=== PATIENT | female | born 1935 | race Caucasian/White ===

== ENCOUNTER 2016-11-02 11:37 | Emergency (ER) | payer MEDICARE, BC ==
--- NOTE | 2016-11-02 12:11 | Emergency Department Record ---
History of Present Illness - General Chief complaint: Nosebleed/epistaxis Stated complaint: NOSE BLEED Time Seen by Provider: 11/02/16 12:11 Source: Patient Mode of Arrival: Ambulatory Limitations: No limitations - History of Present Illness Initial comments: The patient is here due to a nosebleed for the last 5 hours out of the R nares. She denies any bleeding from the L nares or down the back of the throat. The patient did also have a nosebleed 2 days ago and it was cauterized in her family doctor's office. The patient is on Xarelto due to intermittent Afib. Presently she denies being in Afib. MD complaint: Epistaxis Onset/Timin -: Hour(s) Location: Nose Severity: Mild Consistency: Constant Improves with: None Worsens with: None Context-Epistaxis: Other Associated Symptoms: Other - Related Data Home Medications Medication Instructions Recorded Confirmed Last Taken Atorvastatin Calcium 40 mg PO DAILY 04/02/16 09/25/16 11/01/16 Mesalamine [Asacol Hd] 1 tab PO BID 04/02/16 09/25/16 11/01/16 Tiotropium [place] [Spiriva] 1 puff INH DAILY 04/02/16 09/25/16 11/01/16 Acetaminophen [Tylenol Extra 500 mg PO Q8HR PRN 09/19/16 09/25/16 11/01/16 Strength] Amiodarone HCl [Pacerone] 200 mg PO DAILY 09/19/16 09/25/16 11/01/16 Ascorbic Acid [Vitamin C] 1,000 mg PO DAILY 09/19/16 09/25/16 11/01/16 Cholecalciferol (Vitamin D3) 2,000 unit PO DAILY 09/19/16 09/25/16 11/01/16 [Vitamin D3] Gluc/Yoav-MSM#1/C/Oliver/Mark/Bor 2 tab PO DAILY 09/19/16 09/25/16 11/01/16 [Osteo Bi-Flex] Levothyroxine Sodium [Synthroid] 75 mcg PO DAILY 09/19/16 09/25/16 11/01/16 Magnesium Oxide [Mag Ox] 400 mg PO DAILY 09/19/16 09/25/16 11/01/16 Multivitamin [Daily Multiple 1 each PO DAILY 09/19/16 09/25/1611/01/17 Vitamin] Tramadol HCl 50 mg PO Q6H PRN 09/19/16 09/25/16 11/01/16 Ubidecarenone [Coenzyme Q10] 100 mg PO DAILY 09/19/16 09/25/16 11/01/16 Losartan/Hydrochlorothiazide 1 tab PO DAILY 09/25/16 09/25/16 11/01/16 [Losartan-Hctz 100-12.5 mg Tab] Rivaroxaban [Xarelto] 20 mg PO DAILY 11/02/16 11/02/16 11/01/16 Previous Rx's Medication Instructions Recorded Hydrocodone/Acetaminophen [[place] 1 tab PO Q6H PRN #15 tab 09/19/16 5mg/325mg] Allergies Allergy/AdvReac Type Severity Reaction Status Date / Time lorazepam [From Ativan] AdvReac ALTERED Verified 09/19/16 01:42 MENTAL STATUS Travel Screening - Travel/Exposure Within Last 30 Days Have you traveled within the last 30 days?: No - Travel/Exposure Within Last Year Have you traveled outside the [place] in the last year?: No - Additonal Travel Details Have you been exposed to anyone with a communicable illness?: No - Travel Symptoms Symptom Screening: None Review of Systems Constitutional: Denies: Chills, Fever Eyes: Denies: Eye discharge ENT: Denies: Congestion Respiratory: Denies: Cough, Dyspnea Past Medical History - SOCIAL HISTORY Smoking Status: Never smoker Alcohol Use: None Drug Use: None - RESPIRATORY Hx Respiratory Disorders: Yes Hx COPD: Yes - CARDIOVASCULAR Hx Cardio Disorders: Yes Hx Hypertension: Yes Hx Irregular Heartbeat: Yes (Atrial fib) - NEURO Hx Neuro Disorders: No - GI Hx GI Disorders: Yes Comment:: Colitis - Hx Genitourinary Disorders: No - ENDOCRINE Hx Endocrine Disorders: No - MUSCULOSKELETAL Hx Musculoskeletal Disorders: Yes Hx Arthritis: Yes Comment:: left knee pain; has had cortisone injections in b ot knees-06-13 - PSYCH Hx Psych Problems: No - HEMATOLOGY/ONCOLOGY Hx Hematology/Oncology Disorders: No Family Medical History Any Significant Family History?: Yes Hx Heart Disease: Mother Hx HTN: Mother Physical Exam - General General Appearance: Alert, Oriented x3, Cooperative, No acute distress - Head Head exam: Atraumatic, Normocephalic, Normal inspection - Eye Eye exam: Normal appearance, PERRL Course Vital Signs 11/02/16 11:40 Temperature 98.1 F Pulse Rate 68 Respiratory 20 Rate Blood Pressure 178/94 Pulse Ox 99 - Reevaluation(s) Reevaluation #1: The patient is doing very well at this time. She has had no further bleeding since the cautery was done. On exam the R nares is clear with no active bleeding. 11/02/16 13:16 Reevaluation #2: Procedure note: The R nares was prepped with TLE and cauterized with silver nitrate over the medial R wall. There were no complications. 11/02/16 12:30 Reevaluation #3: The patient is doing very well at this time. She has had no further bleeding and is resting comfortably. I did discuss the case with Dr. Yu who is her PCP and he does agree that the patient will need to stop her Xarelto for 3 days. 11/02/16 14:40 Medical Decision Making - Data Complexity MDM Data: Labs Ordered and/or Reviewed - Lab Data Result diagrams: 11/02/16 12:35 11/02/16 12:35 Disposition Disposition: Discharge Clinical Impression: Epistaxis, recurrent Disposition: Home, Self-Care Condition: (1) Good Instructions: Epistaxis (ED) Additional Instructions: Please haegn not take your Xarelto for 3 days. Please use [place] Nasal spray in the R nares twice a day for 3 days along with some gently Abx ointment. Please see your PCP if not better in 3 days. Forms: Patient Portal Access Time of Disposition: 14:45
[2016-11-02 13:23] LABS: ANION GAP 8.1 (7-16); BLOOD UREA NITROGEN 20 mg/dL (7-17); CARBON DIOXIDE 25.9 mmol/L (22-30); CREATININE 0.8 mg/dL (0.52-1.04); EST GLOMERULAR FILTRATION RATE > 60 ml/min; GLUCOSE,RANDOM 90 mg/dL (70-110); INR 1.01; PARTIAL THROMBOPLASTIN TIME 30.9 SECONDS (24.5-39.1); PROTHROMBIN TIME (PATIENT) 11.4 SECONDS (9.5-12.1)
[2016-11-02 13:32] LABS: HEMATOCRIT 36.2 % (35.0-47.0); HEMOGLOBIN 12.2 gm/dl (11.6-16.0); MEAN CELL VOLUME 88.3 fl (81-97); MEAN CORPUSCULAR HEMOGLOBIN 29.8 pg (27-33); MEAN CORPUSCULAR HGB CONC 33.7 g/dl (32-36); MEAN PLATELET VOLUME 8.9 fl (7.4-10.4); PLATELET COUNT 430 K/uL (130-400); RED CELL DISTRIBUTION WIDTH 13.6 % (11.5-14.5); WHITE BLOOD COUNT W/O DIFF 7.8 K/uL (4.2-12.2)
[2016-11-02 13:54] LABS: PLATELET ESTIMATE NORMAL (NORMAL)
== END 2016-11-02 15:13 | disposition home or self-care (01) ==
LOC: ER 11:37
DX: R04.0 Epistaxis (principal); I48.91 Unspecified atrial fibrillation; Z79.01 Long term (current) use of anticoagulants
CPT/HCPCS: 30901; 80048; 85027; 85610; 85730; 99283; 99284

== ENCOUNTER 2017-01-22 14:26 | Emergency (ER) | payer MEDICARE, BC ==
--- NOTE | 2017-01-22 15:14 | Emergency Department Record ---
History of Present Illness - General Chief complaint: Flu Like Symptoms Stated complaint: KENNEDY, UPSET STOMACH, COUGH Time Seen by Provider: 01/22/17 15:06 Source: Patient, Family Mode of Arrival: Wheelchair Limitations: No limitations - History of Present Illness Initial comments: 81 yo female presents not feeling well since Simon night. She has developed cough, chills, subjective fever. The cough has been productive with a small amount of yellowish sputum. She is eating and drinking but at decreased amounts. No rash. She has some congestion and frontal headache and nausea at times. She did get a flu shot. She is a non smoker. No history of COPD or asthma Onset/Timin -: Days(s) Location: Generalized Severity: Moderate Consistency: Constant Improves with: None Worsens with: None Associated Symptoms: Fever/chills, Headaches, Nausea/vomiting - Tere Coma Scale Eye Response: (4) Open spontaneously Motor Response: (6) Obeys commands Verbal Response: (5) Oriented Tere Total: 15 - Related Data Home Medications Medication Instructions Recorded Confirmed Last Taken Atorvastatin Calcium 40 mg PO DAILY 04/02/16 01/22/17 01/21/17 Mesalamine [Asacol Hd] 1 tab PO BID 04/02/16 01/22/17 01/21/17 Tiotropium [place] [Spiriva] 1 puff INH DAILY 04/02/16 01/22/17 01/21/17 Acetaminophen [Tylenol Extra 500 mg PO Q8HR PRN 09/19/16 01/22/17 01/21/17 Strength] Amiodarone HCl [Pacerone] 200 mg PO DAILY 09/19/16 01/22/17 01/21/17 Ascorbic Acid [Vitamin C] 1,000 mg PO DAILY 09/19/16 01/22/17 01/21/17 Cholecalciferol (Vitamin D3) 2,000 unit PO DAILY 09/19/16 01/22/17 01/21/17 [Vitamin D3] Gluc/Yoav-MSM#1/C/[place]/Mark/Bor 2 tab PO DAILY 09/19/16 01/22/17 01/21/17 [Osteo Bi-Flex] Levothyroxine Sodium [Synthroid] 75 mcg PO DAILY 09/19/16 01/22/17 01/21/17 Magnesium Oxide [Mag Ox] 400 mg PO DAILY 09/19/16 01/22/17 01/21/17 Multivitamin [Daily Multiple 1 each PO DAILY 09/19/16 01/22/17 01/21/17 Vitamin] Tramadol HCl 50 mg PO ASDIR PRN 09/19/16 01/22/17 01/21/17 Ubidecarenone [Coenzyme Q10] 100 mg PO DAILY 09/19/16 01/22/17 01/21/17 Losartan/Hydrochlorothiazide 1 tab PO DAILY 09/25/16 01/22/17 01/21/17 [Losartan-Hctz 100-12.5 mg Tab] Rivaroxaban [Xarelto] 20 mg PO DAILY 11/02/16 01/22/17 01/21/17 Previous Rx's Medication Instructions Recorded Hydrocodone/Acetaminophen [[place] 1 tab PO Q6H PRN #15 tab 09/19/16 5mg/325mg] Oseltamivir Phosphate [Tamiflu] 75 mg PO BID #10 capsule 01/22/17 Allergies Allergy/AdvReac Type Severity Reaction Status Date / Time lorazepam [From Ativan] AdvReac ALTERED Verified 01/22/17 14:53 MENTAL STATUS Travel Screening - Travel/Exposure Within Last 30 Days Have you traveled within the last 30 days?: No Review of Systems Constitutional: Reports: Chills, Fever, Malaise, Weakness Eyes: Denies: Eye discharge, Eye pain, Photophobia, Vision change ENT: Reports: Congestion, Throat pain Respiratory: Reports: Cough Cardiovascular: Denies: Chest pain, Palpitations, Syncope Endocrine: Reports: Fatigue. Denies: Polydipsia, Polyuria Gastrointestinal: Reports: Diarrhea (few very small loose stools), Nausea. Denies: Abdominal pain, Vomiting Genitourinary: Denies: Dysuria, Urgency Musculoskeletal: Denies: Arthralgia, Back pain, Joint swelling, Myalgia Skin: Denies: Bruising, Change in color, Rash Neurological: Denies: Confusion, Headache Psychiatric: Denies: Anxiety Hematological/Lymphatic: Denies: Blood Clots, Easy bleeding, Easy bruising, Swollen glands Past Medical History - SOCIAL HISTORY Smoking Status: Never smoker Alcohol Use: None Drug Use: None - RESPIRATORY Hx Respiratory Disorders: Yes Hx COPD: Yes - CARDIOVASCULAR Hx Cardio Disorders: Yes Hx Hypertension: Yes Hx Irregular Heartbeat: Yes (Atrial fib) - NEURO Hx Neuro Disorders: No - GI Hx GI Disorders: Yes Comment:: Colitis - Hx Genitourinary Disorders: No - ENDOCRINE Hx Endocrine Disorders: No - MUSCULOSKELETAL Hx Musculoskeletal Disorders: Yes Hx Arthritis: Yes Comment:: left knee pain; has had cortisone injections in b oth knees-8-16 - PSYCH Hx Psych Problems: No - HEMATOLOGY/ONCOLOGY Hx Hematology/Oncology Disorders: No Family Medical History Any Significant Family History?: Yes Hx Heart Disease: Mother Hx HTN: Mother Physical Exam - General General Appearance: Alert, Oriented x3, Cooperative, No acute distress Limitations: No limitations - Head Head exam: Normal inspection - Eye Eye exam: Normal appearance, PERRL. negative: Conjunctival injection, Periorbital swelling - ENT ENT exam: Normal exam, Mucous membranes moist Ear exam: Normal external inspection Nasal Exam: Discharge, Sinus tenderness. negative: Normal inspection Mouth exam: Normal external inspection Teeth exam: Normal inspection Throat exam: Normal inspection - Neck Neck exam: Normal inspection, Full ROM. negative: Tenderness - Respiratory Respiratory exam: Decreased breath sounds, Rhonchi (left greater than right), Other (No conversation dyspnea). negative: Normal lung sounds bilaterally, Accessory muscle use, Prolonged expiratory, Respiratory distress, Wheezes - Cardiovascular Cardiovascular Exam: Regular rate, Normal rhythm, Normal heart sounds Peripheral Pulses: 2+: Radial (R), Radial (L) - GI/Abdominal GI/Abdominal exam: Soft. negative: Tenderness - Rectal Rectal exam: Deferred - exam: Deferred - Extremities Extremities exam: Normal inspection, Full ROM, Normal capillary refill. negative: Pedal edema, Tenderness - Back Back exam: Reports: Normal inspection, Full ROM. Denies: CVA tenderness (R), CVA tenderness (L), Muscle spasm, Rash noted, Tenderness - Neurological Neurological exam: Alert, Normal gait, Oriented X3. negative: Altered, Motor sensory deficit - Psychiatric Psychiatric exam: Normal affect, Normal mood - Skin Skin exam: Dry, Intact, Normal color, Warm Course Vital Signs 01/22/17 14:45 Temperature 98.0 F Pulse Rate 70 Respiratory 16 Rate Blood Pressure 178/85 Pulse Ox 98 - Reevaluation(s) Reevaluation #1: Vitals reviewed No fever fever or hypoxia. No tachycardia 01/22/17 15:16 Reevaluation #2: The labs were reviewed No acute changes on the CBC She has mild decrease in sodium at 127 and mild decrease in K at 3.1 She is getting IVF and K ordered. 01/22/17 15:59 Reevaluation #3: The patient is FLU B positive Tamiflu ordered She was informed of her mild hyponatremia and hypokalemia 01/22/17 16:11 Reevaluation #4: CXR is negative for acute process The patient feels much better She is very high functioning with a supportive She may be DC home with instructions for a recheck in 1 day or sooner if worse. 01/22/17 16:33 Medical Decision Making - Lab Data Result diagrams: 01/22/17 15:30 01/22/17 15:30 Disposition Disposition: Discharge Clinical Impression: Influenza B, Hyponatremia, Hypokalemia Disposition: Home, Self-Care Instructions: Influenza (ED), Hypokalemia (ED), Hyponatremia (ED) Additional Instructions: Rest and drink fluid with electrolytes Return or see your doctor in one day to recheck your sodium and potassium Return sooner if weak, short of breath, pain or any new concerns. Prescriptions: Oseltamivir Phosphate [Tamiflu] 75 mg PO BID #10 capsule Forms: Patient Portal Access Time of Disposition: 16:35
[2017-01-22] MEDS ORDERED: ONDANSETRON HCL IV 4 MG/2 ML VIAL IVP ONE (15:16)
[2017-01-22] MEDS ORDERED: 0.9 % SODIUM CHLORIDE 1,000 ML BAG IV ONE (15:16)
[2017-01-22 15:45] LABS: HEMATOCRIT 36.4 % (35.0-47.0); HEMOGLOBIN 12.4 gm/dl (11.6-16.0); MEAN CELL VOLUME 86.1 fl (81-97); MEAN CORPUSCULAR HEMOGLOBIN 29.3 pg (27-33); MEAN CORPUSCULAR HGB CONC 34.1 g/dl (32-36); MEAN PLATELET VOLUME 8.9 fl (7.4-10.4); PLATELET COUNT 325 K/uL (130-400); RED BLOOD COUNT 4.23 M/uL (3.80-5.40); RED CELL DISTRIBUTION WIDTH 13.3 % (11.5-14.5)
[2017-01-22 15:56] LABS: ANION GAP 5.9 (7-16); BLOOD UREA NITROGEN 11 mg/dL (7-17); CARBON DIOXIDE 29.1 mmol/L (22-30); CREATININE 0.7 mg/dL (0.52-1.04); EST GLOMERULAR FILTRATION RATE > 60 ml/min; GLUCOSE,RANDOM 107 mg/dL (70-110)
[2017-01-22] MEDS ORDERED: POTASSIUM CHLORIDE 20 MEQ TABLET PO ONE (15:58)
[2017-01-22 15:59] LABS: INFLUENZA A NEGATIVE (NEGATIVE); INFLUENZA B POSITIVE (NEGATIVE)
[2017-01-22] MEDS ORDERED: OSTELTAMIVIR 75 MG CAP PO ONE ×2 (16:11→17:01)
--- NOTE | 2017-01-25 12:59 | RADIOLOGY REPORT ---
EXAM: CHEST, TWO VIEWS HISTORY: COLD SYMPTOMS, COUGH NONPRODUCTIVE FOR TWO DAYS. TECHNIQUE: Two views of the chest were obtained. Comparison: None. FINDINGS: Minimal linear scarring at the left base. The lungs are otherwise clear with no dense infiltrate. The cardiac silhouette, diaphragm, and osseous structures are unremarkable. IMPRESSION: MINIMAL LINEAR SCARRING AT THE LEFT BASE. NO ACUTE PROCESS. JOB NUMBER: [id number] MTDD
== END 2017-01-22 17:08 | disposition home or self-care (01) ==
LOC: ER 14:26
DX: J10.1 Influenza due to other identified influenza virus with other respiratory manifestations (principal); E87.6 Hypokalemia; E87.1 Hypo-osmolality and hyponatremia; R11.2 Nausea with vomiting, unspecified; R51 Headache; I48.91 Unspecified atrial fibrillation; I10 Essential (primary) hypertension; J44.9 Chronic obstructive pulmonary disease, unspecified
CPT/HCPCS: 71020; 80048; 85027; 87400; 96361; 96374; 99284; J2405; J7030